=== PATIENT | female | born 1995 | race Caucasian/White ===

== ENCOUNTER → 2018-11-14 | Day surgery (SDC) | payer MEDICAID ==
[~2018-11-14] MED LIST: Glycopyrrolate 0.2 MG/ML SDV IVPUSH ONE; Lactated Ringers 1,000 ML IV SCH; Propofol 200 MG/20 ML SDV IV ONE
--- NOTE | 2018-11-18 09:26 | OR ---
DATE OF OPERATION: 11/14/2018 PREOPERATIVE DIAGNOSIS: 1. PERSISTENT EPIGASTRIC PAIN. 2. HISTORY OF MELENIC STOOLS. POSTOPERATIVE DIAGNOSIS: 1. ANTRAL GASTRITIS. 2. FUNDAL EROSION, HEALING. 3. MINIMAL DISTAL ESOPHAGITIS, LIKELY REFLUX RELATED. SURGEON: Kelvin Gonzalez MD PROCEDURE: EGD WITH BIOPSIES X4, CIRILO. ANESTHESIA: MAC via PROTECTIVE OFFICER. COMPLICATIONS: None. SPECIMEN: 1. Antral biopsy x2. 2. Antral CIRILO. 3. Fundal biopsy x1. 4. Distal esophageal biopsy x1. FINDINGS: 1. Full-length EGD. 2. Distal antral gastritis, mild and hemorrhagic in appearance. 3. Healing linear erosion, mid fundus. 4. Minimal distal esophagitis, likely reflux related. RECOMMENDATIONS: Medical followup with Michoacano Crow, the patient's primary. INDICATIONS: The patient has apparently been having ongoing issues with dyspepsia, occasionally melenic stools. [place]oacano Crow recommended EGD. DESCRIPTION OF PROCEDURE: The patient was prepped and draped, placed in the left lateral decubitus position. A lubricated Olympus gastroscope was inserted over a bit, advanced to cricopharyngeus area, and easily intubated into the esophagus. The esophageal lining was benign until its most distal portion. The Z-line was crisp and sharp at 38.5 to 39 cm. There was no hernia present, but there was some spontaneous reflux. There was 1 area of what appeared to be healed esophagitis, very minimal, but we did biopsy that region. The scope was advanced into the stomach through the pylorus and into the second portion of the duodenum. This and the duodenal bulb were completely benign. I brought the scope back into the stomach and retroflexed. The upper fundus and cardia were unremarkable. Upon straightening, the patient did have a linear erosion which is healing in the mid fundus, biopsied x1. The rest of the fundus was unremarkable. In the most distal portion of the antrum, the patient had some evidence of gastritis surrounding the entire pylorus which had a petechial-type appearance, almost hemorrhagic gastritis in nature. We did 2 biopsies of that along with a CLOtest on an unaffected portion of the antrum. No other polyps, masses, or lesions were seen. Air was suctioned from the stomach. The scope was removed without complication. JONATHAN/ANUJ /[id number]
== END ==
LOC: CC.SDS 11:43
PROVIDERS: ATTEND Family Medicine
DX: K29.01 Acute gastritis with bleeding (principal); K21.0 Gastro-esophageal reflux disease with esophagitis; F41.9 Anxiety disorder, unspecified; K92.0 Hematemesis; E66.01 Morbid (severe) obesity due to excess calories; Z68.43 Body mass index [BMI] 50.0-59.9, adult; Z79.899 Other long term (current) drug therapy; Z87.19 Personal history of other diseases of the digestive system
CPT/HCPCS: 87081; J2704; J3490; J7120

== ENCOUNTER → 2018-12-05 | Day surgery (SDC) | payer MEDICAID ==
[~2018-12-05] MED LIST changes: -Glycopyrrolate 0.2 MG/ML SDV IVPUSH ONE; -Lactated Ringers 1,000 ML IV SCH
[2018-12-05] MEDS: Lactated Ringers 1,000 ML IV SCH ×2 (11:36→11:49)
--- NOTE | 2018-12-08 09:14 | OR ---
DATE OF OPERATION: 12/05/2018 PREOPERATIVE DIAGNOSIS: DIARRHEA WITH HEMATOCHEZIA. POSTOPERATIVE DIAGNOSIS: DIARRHEA WITH HEMATOCHEZIA. SURGEON: Kelvin Gonzalez MD PROCEDURE: FULL-LENGTH COLONOSCOPY TO TERMINAL ILEUM WITH RANDOM BIOPSIES X6. ANESTHESIA: MAC via NEWS ASSIGNMENT EDITOR. COMPLICATIONS: None. SPECIMEN: Random biopsies from terminal ileum to rectum x6. FINDINGS: Essentially normal full-length colonoscopy. RECOMMENDATIONS: Follow up with Opal Crow pending path reports. INDICATIONS: The patient has been having some ongoing issues with abdominal pain, diarrhea, and now hematochezia. Opal sent her for diagnostic colonoscopy. DESCRIPTION OF PROCEDURE: The patient was prepped and draped, placed in the left lateral decubitus position. A lubricated Olympus colonoscope was inserted and easily advanced to the cecum. We were able to directly visualize the ileocecal valve and appendiceal orifice. The bowel prep was excellent. Intubation into the terminal ileum was easily accomplished. Terminal ileum appeared grossly benign. Biopsy was taken. Throughout the entire length of the colon, I could find no signs of any polyps, mass, ulceration, or bleeding sites. No vascular abnormalities or signs of colitis. No active bleeding sites. No significant hemorrhoidal tissue in the rectal vault or the perianal region. I did do biopsies extending from the terminal ileum to the rectum randomly x6. Air was then suctioned from the colon and scope removed without complication. JONATHAN/ANUJ /[id number]
== END ==
LOC: CC.SDS 11:20
PROVIDERS: ATTEND Family Medicine
DX: K92.1 Melena (principal); K63.89 Other specified diseases of intestine; F17.290 Nicotine dependence, other tobacco product, uncomplicated; F41.9 Anxiety disorder, unspecified; E66.01 Morbid (severe) obesity due to excess calories
CPT/HCPCS: 36415; 84703; J2704; J7120

== ENCOUNTER 2018-12-08 19:09 | Emergency (ER) | payer MEDICAID ==
[2018-12-08] MEDS ORDERED: Fluorescein 1 MG Ophth Strip EYEBOTH ONE (19:10)
[2018-12-08] MEDS ORDERED: Gentamicin 0.3% Ophth Soln 5 ML Bottle EYEBOTH ONE (19:10)
[2018-12-08] MEDS ORDERED: Tetracaine HCl/PF 0.5% 4 ML Bottle EYEBOTH ONE (19:10)
[2018-12-08] MEDS ORDERED: Gentamicin 0.3% Ophth Soln 5 ML Bottle EYERT SCH (19:40)
[2018-12-08] MEDS ORDERED: Tetracaine HCl/PF 0.5% 4 ML Bottle EYERT ONE (19:40)
--- NOTE | 2018-12-08 19:46 | EDM.PDOC ---
ED HPI GENERAL MEDICAL PROBLEM - General Chief Complaint: ENT Problem Stated Complaint: R) eye redness/pain Time Seen by Provider: 12/08/18 19:20 Source of Information: Reports: Patient History Limitations: Reports: No Limitations - History of Present Illness INITIAL COMMENTS - FREE TEXT/NARRATIVE: Osman is a 23 yo female who presents to the ED via private vehicle with concerns of something in her right eye. She states it started bothering her last night and admits she took her contact out thinking it would help. She states she feels like she has an eye lash in her eye but hasn't been able to see or get anything out. States this morning it felt a little better and put her contact back in and went back to work. This evening she had difficulty getting her contact out as she states her eye was really sore. No change in vision. States sensitivity to light. States she feels like something is rubbing on her eye when she shuts her eye lid at top inner part of her eye. 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 Denies: Vision Change ED EXAM GENERAL W FULL EYE - Physical Exam Exam: See Below Eye Exam: Bilateral Eye: EOMI Eyelids: Right: Lid Everted for Exam, Stye, Other (No foreign body) Conjunctiva & Sclera: Right: Conjunctival Edema, Injected Cornea Exam: Right: Examined with Flourescein Extraocular Movements: Right: Intact Pupils: Normal Accommodation ED EYE w/ Add Procedure - Eye Procedure Alcaine Drops Administered: Yes Antibiotic Oinment/Drps Admin: Right Eye Progress: No foreign body visualized. Stye at the 1'oclock position. Gentamicin drops X 2 to right eye. Course - Vital Signs Last Recorded V/S: Last Vital Signs Temp 98 F 12/08/18 19:09 Pulse 104 H 12/08/18 19:09 Resp 16 12/08/18 19:09 BP 131/70 12/08/18 19:09 Pulse Ox 99 12/08/18 19:09 Departure - Departure Time of Disposition: 19:47 Disposition: Home, Self-Care 01 Clinical Impression: Hordeolum of right upper eyelid Qualifiers: Hordeolum type: internum Qualified Code(s): H00.021 - Hordeolum internum right upper eyelid - Discharge Information Instructions: Thu Additional Instructions: 1) Gentamicin eye drops - 1-2 drops 4 times a day for 10 days 2) Recommend using ibuprofen for discomfort/swelling as directed on bottle 3) Stye hand out given 4) Refrain from wearing contacts unless permission by Dr Andrea 5) Follow up if any concerns at all. - Problem List & Annotations (1) Hordeolum of right upper eyelid SNOMED Code(s): 1044546 Code(s): H00.011 - HORDEOLUM EXTERNUM RIGHT UPPER EYELID Status: Acute Qualifiers: Hordeolum type: internum Qualified Code(s): H00.021 - Hordeolum internum right upper eyelid - Assessment/Plan Plan: See additional instructions.
== END 2018-12-08 19:55 | disposition home or self-care (01) ==
LOC: CC.ED 19:09
DX: H00.021 Hordeolum internum right upper eyelid (principal); F17.200 Nicotine dependence, unspecified, uncomplicated; Z79.899 Other long term (current) drug therapy
CPT/HCPCS: 99282; A9270-GY

== ENCOUNTER 2019-04-24 22:53 | Emergency (ER) | payer MEDICAID ==
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
== END 2019-04-25 00:30 | disposition home or self-care (01) ==
LOC: CC.ED 22:53
DX: F32.9 Major depressive disorder, single episode, unspecified (principal); Z79.899 Other long term (current) drug therapy
CPT/HCPCS: 99283

== ENCOUNTER 2022-11-09 01:17 | Emergency (ER) | payer MEDICAID ==
[2022-11-09 01:59] LABS: BASOPHILS ABSOLUTE AUTO 0.03 10^3/uL (0.00-0.50); BASOPHILS PERCENT AUTO 0.3 % (0-1); EOSINOPHILS ABSOLUTE AUTO 0.88 10^3/uL (0.00-1.50); EOSINOPHILS PERCENT AUTO 9.1 % (0-6); HEMATOCRIT 41.3 % (37.0-47.0); HEMOGLOBIN 13.5 g/dL (12.0-16.0); IMMATURE GRAN ABSOLUTE AUTO 0.02 10^3/uL (0.00-0.49); IMMATURE GRAN PERCENT AUTO 0.2 % (0.0-4.9); LYMPHOCYTES ABSOLUTE AUTO 3.48 10^3/uL (0.60-5.00); MEAN CORPUSCULAR HEMOGLOBIN 28.9 pg (27.0-32.0); MEAN CORPUSCULAR HGB CONC 32.7 g/dL (32.0-36.0); MEAN CORPUSCULAR VOLUME 88.4 fL (83.0-97.0); MONOCYTES ABSOLUTE AUTO 0.53 10^3/uL (0.00-1.50); MONOCYTES PERCENT AUTO 5.5 % (0-10); NEUTROPHILS ABSOLUTE AUTO 4.74 x10^3/uL (1.80-8.00); NEUTROPHILS PERCENT AUTO 48.9 % (41-71); PLATELET COUNT,PLT 326 10^3/uL (150-400); RED BLOOD CELL COUNT 4.67 x10^6/uL (4.00-5.50); WHITE BLOOD CELL COUNT,WBC 9.7 10^3/uL (4.0-11.0)
[2022-11-09 02:05] LABS: APPEARANCE,URINE CLEAR (CLEAR); BILIRUBIN,URINE NEGATIVE (NEGATIVE); COLOR,URINE YELLOW (YELLOW); GLUCOSE,URINE NEGATIVE (NEGATIVE); KETONES,URINE NEGATIVE (NEGATIVE); LEUKOCYTE ESTERASE,URINE NEGATIVE (NEGATIVE); NITRITE,URINE NEGATIVE (NEGATIVE); OCCULT BLOOD,URINE SMALL (NEGATIVE); PH,URINE 5.5 (4.5-8.0); PROTEIN,URINE NEGATIVE (NEGATIVE); UROBILINOGEN,URINE 0.2 EU/dL (0.2-1.0)
[2022-11-09 02:13] LABS: ALBUMIN 3.7 g/dL (3.4-5.0); BILIRUBIN TOTAL 0.3 mg/dL (0.0-1.0); CALCIUM 9.1 mg/dL (8.4-10.1); EST CRCL DRUG DOSING (CG) 86.75 mL/min; POTASSIUM,K 3.9 mEq/L (3.5-5.0); PROTEIN TOTAL,TP 7.4 g/dL (6.4-8.2)
[2022-11-09 02:15] LABS: BACTERIA,URINE OCCASIONAL /HPF (NOT SEEN); EPITHELIAL CELLS,URINE MANY /HPF (NOT SEEN); RBC,URINE 0-5 /HPF (0-5); WBC,URINE 0-5 /HPF (0-5)
[2022-11-09] MEDS ORDERED: Take Home: Ondansetron 4 MG Tab.DIS, 2 Tab Pack PO ONE (02:24)
[2022-11-09] MEDS ORDERED: Take Home: Acetaminophen/HYDROcodone 325-5 MG, 2 Tab Pack PO ONE (02:24)
== END 2022-11-09 02:44 | disposition home or self-care (01) ==
LOC: CC.ED 01:17
DX: R10.11 Right upper quadrant pain (principal)
CPT/HCPCS: 36415; 80053; 81001; 81025; 82150; 83690; 85025; 99284; A9270-GY